=== PATIENT | female | born 1995 | race Caucasian/White ===

== ENCOUNTER 2023-08-10 14:13 | Outpatient (CLI) | payer BC, SELFPAY ==
--- NOTE | 2023-08-12 14:40 | WPDHOLTEREM ---
Holter/Event Monitor Holter/Event Monitor Date of procedure: 08/10/23 Holter/Event Procedure: 24 Hr Holter Monitor Indications: Palpitations Conclusion: 1. 24 hour holter monitor on 08/10/23. 2. Underlying rhythm is sinus rhythm. HR range 61-143 bpm; average HR 93 bpm. HR at 143 bpm was at 13:38. 3. There is 1 premature supraventricular complex. No supraventricular tachycardia. 4. No premature ventricular complexes. No ventricular tachycardia. 5. No sinoatrial or atrioventricular blocks. No significant pauses greater than 2 seconds. 6. Patient reports symptoms of fluttering which demonstrate sinus rhythm, HR range 92-117 bpm.
== END 2023-08-10 14:14 | disposition home or self-care (01) ==
PROVIDERS: PCP Advanced Practice Midwife; Visit Provider Advanced Practice Midwife
DX: R00.2 Palpitations (principal)
CPT/HCPCS: 93225; 93226

== ENCOUNTER 2023-11-06 10:50 | Outpatient (CLI) | payer BC, SELFPAY ==
[2023-11-06 11:16] VITALS: BP 100/65; PULSE 85
[2023-11-06 11:20] LABS: Basophils Absolute Auto 0.1 K/mm3 (0.0-0.1); Basophils Percent Auto 0.7 % (0.2-1.2); Eosinophils Absolute Auto 0.1 K/mm3 (0-0.3); Eosinophils Percent Auto 0.6 % (0-4.4); Hematocrit 40.8 % (37.0-47.0); Hemoglobin 13.3 g/dL (12.0-15.0); Immature Granulocyte Percent A 1.1 % (0-0.5); Lymphocytes Percent Auto 16.8 % (18.3-44.2); Mean Corpuscular HGB Conc 32.6 g/dl (32-36); Mean Corpuscular Hemoglobin 29.4 pg (26-34); Mean Corpuscular Volume 90.1 fl (80-100); Mean Platelet Volume 10.3 fl (7.4-10.4); Monocytes Absolute Auto 0.5 K/mm3 (0.1-0.6); Monocytes Percent Auto 5.4 % (2.6-8.5); Neutrophils Absolute Auto 6.8 K/mm3 (1.3-6.7); Neutrophils Percent Auto 75.4 % (45.5-73.1); Platelet Count Result 163 k/mm3 (150-375); Red Blood Count 4.53 M/mm3 (4.2-5.4); Red Cell Distribution Width 13.5 % (11.5-14.5); White Blood Count 8.9 K/mm3 (4.5-10.0)
[2023-11-06 11:20] LABS: Appearance Urine Clear (Clear); Bilirubin Urine Negative (Negative); Blood Urine Negative (Negative); Color Urine Yellow (Yellow); Glucose Urine UA Negative (Negative); Ketones Urine Negative (Negative); Leukocyte Esterase Ur Negative LEU/UL (NEGATIVE); Nitrate Urine Negative (Negative); Protein Urine Negative (Negative); Specific Grav Ur 1.004 (1.001-1.035); Urobilinogen Urine 0.2 mg/dL (<2.0); pH Urine 7.5 (5.0-9.0)
[2023-11-06 11:25] LABS: Creatinine Urine 19.7 mg/dL; Total Protein Urine Random 14 mg/dL; Ur Ttl Prot Creatinine Ratio 0.71 mg/mg (0-0.20)
[2023-11-06 11:28] LABS: Add Urine Microscopic? NO
[2023-11-06 11:29] LABS: Alanine Aminotransferase 23 U/L (6-35); Albumin Level 3.5 g/dL (3.5-5.1); Alkaline Phosphatase 103 U/L (38-126); Anion Gap 5 mmol/L (8-16); Aspartate Amino Transferase 24 U/L (14-36); Bilirubin,Total 0.6 mg/dL (0.2-1.3); Blood Urea Nitrogen 3 mg/dL (7-17); Carbon Dioxide 24 mmol/L (22-30); Chloride 107 mmol/L (98-107); Estimated Glomerular Filt Rate > 60; Glucose 79 mg/dL (65-110); Potassium 3.5 mmol/L (3.4-5.0); Sodium 136 mmol/L (137-145); Uric Acid 3.1 mg/dL (2.5-7.5)
[2023-11-06 11:31] VITALS: BP 108/63; PULSE 67
[2023-11-06 11:46] VITALS: BP 102/61; PULSE 85
--- NOTE | 2023-11-06 11:57 | PC.NURSE ---
1150--Reported labs and BP's to . DC orders given.
[2023-11-06 12:01] VITALS: BP 99/62; PULSE 94
[2023-11-06 12:28] VITALS: BP 100/65; PULSE 79
== END 2023-11-06 12:25 | disposition home or self-care (01) ==
LOC: ANHOBOP 10:55 → ANHLDR 11-11 06:42
PROVIDERS: PCP Advanced Practice Midwife; Visit Provider Obstetrics & Gynecology
DX: O13.9 Gestational [pregnancy-induced] hypertension without significant proteinuria, unspecified trimester (principal); Z3A.00 Weeks of gestation of pregnancy not specified
CPT/HCPCS: 36415; 59025; 80053; 81003; 82570; 84156; 84550; 85025; 87086; 87088; 99199

== ENCOUNTER 2023-12-01 05:58 | Inpatient (IN) | payer BC, SELFPAY ==
[2023-12-01] VITALS (24 sets, daily range): BP systolic 106–138; BP diastolic 61–101; PULSE 65–146; RESP 16–20; TEMP 36.1–37.1; O2SAT 98–100; BMI 29.2
--- OUTSIDE RECORDS SUMMARY | 2023-12-01 06:23 | XMS_ITS | Continuity of Care Document ---
Author Name Unknown Organization [facility] Address [address] [place] [id number] Care Team Providers Care Anatomy Professor Name Role Phone Nga Rizzo Primary Care Physician ( [phone] Encounter [facility] Financial Number [id number] Date(s): 10/28/23 - 10/28/23 [facility] [address] [phone] Discharge Disposition: Home or Self Care Attending Physician: Jay Starks III, MD Allergies, Adverse Reactions, Alerts Substance Reaction Severity Status Tylenol Swelling Rash Active Benzoyl Peroxide Swelling Rash Active Medications Multivitamins 1 tablet(s), Oral, qhs, 30 tablet(s), Tablet(s), 0 Start Date: 10/21/23 Status: Ordered Slow Release Iron (as elemental iron) 45 mg oral tablet, extended release mg, tablet(s), 0 Start Date: 10/21/23 Status: Ordered Vital Signs Most recent to oldest [Reference Range]: 1 Height 167.5 cm (10/28/23 1:05 PM) Weight 78 kg (10/28/23 1:05 PM) Social History Social History Type Response Alcohol Never alcohol user Substance Abuse Never drug user Smoking Status Never smoker;Never; Tobacco Cessation Counseling Requested N/A entered on: 10/21/23 Sex Patient Care team information Care Team Personnel Name: Nga Rizzo Position: [facility] FAX ONLY - MD NOT ON STAFF Member Role: Primary Care Physician Address: Address: [address] [place] [id number] [place] Name: Jay Starks III, MD Position: Physician - Plastic Surgery Med Service: [employer] Anatomy Professor Role: Attending Physician Address: Address: [address] [place] [address] [address] [place] [address] [place]
[2023-12-01 07:10] LABS: Basophils Percent Auto 0.4 % (0.2-1.2); Eosinophils Percent Auto 0.3 % (0-4.4); Hematocrit 40.7 % (37.0-47.0); Hemoglobin 13.4 g/dL (12.0-15.0); Immature Granulocyte Absolute 0.09 K/mm3 (0.00-0.031); Lymphocytes Absolute Auto 1.92 K/mm3 (0.9-3.2); Lymphocytes Percent Auto 20.6 % (18.3-44.2); Mean Corpuscular HGB Conc 32.9 g/dl (32-36); Mean Corpuscular Hemoglobin 29.6 pg (26-34); Mean Corpuscular Volume 89.8 fl (80-100); Mean Platelet Volume 11.3 fl (7.4-10.4); Monocytes Absolute Auto 0.6 K/mm3 (0.1-0.6); Neutrophils Absolute Auto 6.7 K/mm3 (1.3-6.7); Neutrophils Percent Auto 71.7 % (45.5-73.1); Platelet Count Result 162 k/mm3 (150-375); Red Blood Count 4.53 M/mm3 (4.2-5.4); Red Cell Distribution Width 13.4 % (11.5-14.5); White Blood Count 9.3 K/mm3 (4.5-10.0)
--- NOTE | 2023-12-01 07:15 | LDADM ---
This patient, Hannah Han, was admitted to Labor/Delivery/Recovery 104 on 12/01/23 at 05:58. Plans for labor, pain management and were discussed with patient. Patient/family oriented to hospital policies and general routines including ID bracelet, bed and alarms, visiting hours, pain management, procedures, bathroom and other care routines, personal items, smoking policy, room service/diet and guest tray routines, security routines, and visiting hours. Patient/Family are encouraged to report perceived risks to care and to ask questions if they do not understand what they are told or what they should do. See OBIX for further documentation.
--- NOTE | 2023-12-01 07:37 | WPDOBADMIT ---
Obstetrics - Admit Note Admission Note: record reviewed. No pertinent additions to the history and/or any subsequent changes in the physical findings that are not consistent with the expected course of the were found. Additions to the history and/or subsequent changes in the physical findings follow. Pt arrived after SROM, hx fibroids, vaginismus, SVE by RN 2 cm, anticipate vaginal delivery
[2023-12-01] MEDS: LACTATED RINGERS 1,000 ML 125 ML IV CONT (11:50)
[2023-12-01] MEDS: OXYTOCIN 30 UNITS/NS 500 ML 30 UNITS/500 ML BAG 999 UNITS IV CONT (13:50)
[2023-12-01 13:59] LABS: Rapid Plasma Reagin Non-Reactive (NonReactive)
[2023-12-01] MEDS: fentaNYL CITRATE INJ (*CRX) 100 MCG/2 ML VIAL IV PUSH (14:07)
--- NOTE | 2023-12-01 14:14 | PM.OBPRVD ---
OB - Vaginal Delivery Note Procedure Delivery date: 12/01/23 Delivery monitor: External FHT and External Uterine Route of delivery: Episiotomy description: None Laceration Description: Perineal - 2nd Degree Delivery repair: vicryl Specimen: No Quantitative Blood Loss (ml): 275 Anesthesia type: Local Disposition: Floor Complications: No immediate complications [place] Baby Date of : 12/01/23 Time of : 13:49 Weeks of gestation at delivery: 39 Infant gender: Male presentation: vertex position: Right Occiput Anterior Placenta delivery description: Spontaneous Cord Vessel Description: 3 Vessels and Delayed Cord Clamping score one minute: 8 score ten minutes: 9 Narrative: mother and baby stable
[2023-12-01] MEDS: OXYTOCIN 30 UNITS/NS 500 ML 30 UNITS/500 ML BAG 125 UNITS IV CONT (14:27)
--- NOTE | 2023-12-01 15:08 | PC.NURSE ---
[id number] Labor RN requested a consult related to finding infant poorly latched on the areola which left a purple dre. Introductions were made and LC assessed the latch. is latched to the left breast with good rocking motion and mother rates the discomfort 3 on a 0-10 paind scale. Mother denies a pinching pain, however; infant has a very strong suck. Mother's left breast has a biopsy scar going from near the areola out towards the 1 o'clock position. Mother states results were benign. demonstrated swallowing on the left breast, then detached began rooting. Nipple was slightly flattened on the underside and 's tongue was visualized having a tight lower frenulum. Encouraged understanding of the benefits of skin to skin with infant and placed upright on her chest. Reviewed positioning, supporting the breast with the sandwich hold to facilitate a deep latch, asymmetrical latch (off-center), leading with the chin with a big, open, wide, gape and body close to mother. Infant latched optimally to the left, then right breast in cross cradle position. Education given to the mother of how to visualize the suckling (with good rocking jaw motion), swallows (dropping of the lower jaw) and infant demonstrated deep lowering of the jaw on both breast. was able to maintain latch without pain other than the initial discomfort, then it subsided. Reminded mother to protect the nipple with optimal positioning, latching and good support. Patient voiced understanding to call for assistance with latching to facilitate a good deep latch. IVA RN discussed with parents a plan to check in with them tomorrow morning to assess needs.
[2023-12-01] MEDS: WITCH HAZEL 40 PADS 1 PAD TOPICAL (16:31)
[2023-12-01] MEDS: BENZOCAINE 20% AER SPR (*SP) 56 GM CAN 1 SPRAY TOPICAL (16:31)
[2023-12-01] MEDS: IBUPROFEN 600 MG TABLET PO ×2 (16:31→22:21)
--- NOTE | 2023-12-01 17:00 | OBPPTRN ---
Patient transferred to post room #280 via wheelchair. Support person present. Oriented to unit, room, information board, rooming in, admission packet and security measures. Patient verbalizes understanding.
[2023-12-01] MEDS: DOCUSATE SODIUM 100 MG CAPSULE PO (17:53)
[2023-12-02 05:18] VITALS: BP 106/65; PULSE 96; RESP 16; TEMP 36.6; O2SAT 98
[2023-12-02 05:47] LABS: Hematocrit 35.6 % (37.0-47.0); Hemoglobin 11.8 g/dL (12.0-15.0)
[2023-12-02] MEDS: DOCUSATE SODIUM 100 MG CAPSULE PO ×2 (07:01→20:20)
[2023-12-02] MEDS: IBUPROFEN 600 MG TABLET PO ×2 (07:01→13:14)
[2023-12-02] MEDS: MULTIVIT/MIN/PREN/FOL AC/IRON TABLET 1 TAB PO (07:01)
[2023-12-02 07:35] VITALS: BP 104/57; PULSE 93; RESP 16; TEMP 36.6; O2SAT 98
--- NOTE | 2023-12-02 08:22 | PM.OBPNVD ---
OB - PN: Subj Subjective Date/time seen: 12/02/23 08:22 Patient comments: no complaints, pain well controlled, incisional pain, tolerating diet and flatus present OB - PN: Obj Data Labs 12/02/23 05:34 Labs: Laboratory Results - last 24 hr 12/01/23 12/02/23 07:04 05:34 Hgb 11.8 L Hct 35.6 L RPR Non-reactive Antibody Screen Negative OB - PN A/P Plan day: 1 Plan: routine care Comments: No problems, routine care Time Spent With Patient Time: Total time spent is greater than 50% in coordination of care (as documented) at patient's floor/unit and/or counseling patient: Exam Const: General: comfortable, no acute distress and alert Resp: Effort & Inspection: normal respiratory effort Auscultation: no crackles, no rales and no rhonchi Cardio: Rate: regular rate Heart sounds: no click, no murmurs and no rubs GI: Inspection: non-distended GI Palp: No Tenderness to palpation present (GI) Auscultation: normal bowel sounds Other: Incision - CDI Extrem: General: normal to inspection, no pedal edema and no calf tenderness
--- NOTE | 2023-12-02 09:31 | PC.NURSE ---
[id number] Purposefully rounded to assess needs and mother is S2S with her after for 13 min. Mother verbalizes she is able to independently latch with appropriate positioning and alignment. She denies any nipple discomfort and is responsively . Infant is currently meeting outcomes for weight, output, jaundice, blood sugar and feeding frequencies of 8-12 times in 24 hours. Mother is encouraged to call for assistance if her doesn?t latch, difficulty waking , pain with latching, questions or concerns. Mother voiced understanding of information shared along with the feeding sheet, mom/baby guide for an additional resource with LC RN's name written on the communication board as well.
[2023-12-02 21:25] VITALS: BP 119/75; PULSE 83; RESP 16; TEMP 36.9; O2SAT 100
[2023-12-03] MEDS: IBUPROFEN 600 MG TABLET PO ×3 (00:30→14:52)
[2023-12-03 07:55] VITALS: BP 107/70; PULSE 63; RESP 18; TEMP 36.7; O2SAT 100
--- NOTE | 2023-12-03 08:06 | PM.OBPNVD ---
OB - PN: Subj Subjective Date/time seen: 12/03/23 08:06 Interval history: pp day 2 doing well d/c home OB - PN: Obj Data Labs 12/02/23 05:34 OB - PN A/P Plan day: 2 Plan: routine care and discharge home Time Spent With Patient Time: Total time spent is greater than 50% in coordination of care (as documented) at patient's floor/unit and/or counseling patient: Review of Systems Review of Systems: All systems reviewed & are unremarkable except as noted in HPI and below Exam Const: General: cooperative, healthy appearing and comfortable Resp: Effort & Inspection: normal respiratory effort Back/Spine/Pelvis: Back: no CVA tenderness Skin: General skin exam: normal color Neuro: General: patient oriented x3 Extrem: Right lower extremity: normal to inspection Left lower extremity: normal to inspection Psych: Appearance: grossly normal
--- NOTE | 2023-12-03 08:08 | PM.OBDSVD ---
DS: Admitting Diagnosis Discharge Date 12/03/23 Admitting Diagnosis SROM, labor DS: Discharge Diagnosis Discharge Diagnosis (1) Vaginal discharge: Code(s): N89.8 - Other specified noninflammatory disorders of vagina Status: Acute OB - DS: Summary OB Procedures : None OB Procedures Intrapartum: Spontaneous Vag Delivery OB Procedures: : None Peripartum Data Laceration Description: Perineal - 2nd Degree Episiotomy description: None Time Spent with Patient Time attestation: Total time spent providing and/or coordinating discharge services: Discharge Plan Discharge Attending physician on discharge: Quan Hernandez Discharging Clinician: Jasmine To Patient Disposition: Home, Self-Care Activity: pelvic rest Diet: regular Patient Instructions: Antibiotic Form Stand Alone Forms: General Discharge Information Follow-up/Referrals: Jasmine To CNM [Primary Care Provider] - 4 Weeks Discharge Medications: New ibuprofen 600 mg Tablet 600 mg PO Q6H PRN (Reason: Cramping) Qty: 30 0RF Continued Slow Fe 142 mg (45 mg iron) Tablet Extended Release 142 mg PO DAILY PNV [id number] fumarate-FA [] 28 mg iron- 800 mcg Tablet 1 tablet PO DAILY Date of admission: 12/01/23 05:58 Primary Care Provider: Jasmine To Admitting Provider: Quan Hernandez Attending physician on admission: Quan Hernandez Condition: Stable
[2023-12-03] MEDS: MULTIVIT/MIN/PREN/FOL AC/IRON TABLET 1 TAB PO (08:42)
[2023-12-03] MEDS: DOCUSATE SODIUM 100 MG CAPSULE PO ×2 (08:42→16:50)
--- NOTE | 2023-12-03 16:35 | PC.NURSE ---
[id number] Purposefully rounded to assess for needs and to check in to see how the night went. Parents shared there was a not so good feeding last night. Encouraged [id number] and stimulating for and to call if she has difficulty waking infant or when feeding cues are visualized. [id number] Mother requested a consult. Reviewed positioning and ear, shoulder, hip alignment, supporting the breast to facilitate a deep latch, asymmetrical latch (off-center), leading with the chin with a big, open, wide gape and body close to mother. Infant latched optimally to the left, then right breast in football, then cross cradle position. Education given to the mother of how to visualize the suckling (with good rocking jaw motion), swallows (dropping of the lower jaw) and how to listen for drinking at the breast (the ka sound) infant demonstrated more effective swallowing on the right breast. There is a scar on the left breast from a biopsy during . was able to maintain latch without pain to mother other than the initial latching. Encouraged mother to protect the nipple with optimal positioning, latching, and detaching. Mother voiced understanding of skin to skin, stimulating with massage touch, responsive feedings, to encourage if it has been 2 -2.5 hours since the start of the last , to call if infant does not latch, difficulty waking to breastfeed or if there is discomfort with . Resources used for education were facilitated with the visual educational handouts, tool, mom and baby guide. Inpatient/outpatient resources provided with feeding sheet, name written on the communication board, and the mom/baby guide. Parents voiced understanding of information, demonstrated learning and will call if there is a request for assistance. Reported to the Primary RN.
[2023-12-04 11:32] VITALS: BP 137/87; PULSE 98; RESP 18; TEMP 37.2; O2SAT 100
== END 2023-12-03 18:55 | disposition home or self-care (01) | DRG 807 ==
LOC: ANHLDR 06:22 → ANHOB2 17:12
PROVIDERS: Admitting Provider Obstetrics & Gynecology; PCP Advanced Practice Midwife; Visit Provider Obstetrics & Gynecology
DX: O70.1 Second degree perineal laceration during delivery (principal); Z37.0 Single live birth; Z3A.39 39 weeks gestation of pregnancy
CPT/HCPCS: 36415; 84112; 85014; 85018; 85025; 86592; 86850; 86900; 86901; A9270; J2590; J3010; J7120

== ENCOUNTER 2023-12-05 23:20 | Observation (INO) | payer BC, SELFPAY ==
--- NOTE | 2023-12-05 23:19 | PC.NURSE ---
Pt presents to unit with report of swelling feet and an increase in heart rate.
[2023-12-06 00:11] VITALS: PULSE 76; O2SAT 100
[2023-12-06 00:15] VITALS: BP 127/84; PULSE 63; PULSE 83; O2SAT 100
[2023-12-06 00:16] VITALS: BP 127/84; PULSE 63; PULSE 71; RESP 16; O2SAT 100
[2023-12-06 00:20] VITALS: PULSE 65; TEMP 37.1; O2SAT 99
--- NOTE | 2023-12-06 00:22 | PC.NURSE ---
Called Kenneth To CNM to update on pt, swelling, heart rate, vitals, and vaginal bleeding. Kenneth To asked to assess vaginal tear and call back with report on tear.
[2023-12-06 00:25] VITALS: PULSE 64; O2SAT 100
--- NOTE | 2023-12-06 00:30 | PC.NURSE ---
Updated Kenneth To CNM on vaginal tear odor and white appearance, asked to come look at tear. Orders received to administer Flagyl PO 500 mg, Silvadene to incision, and discharge pt with instructions to make an appointment in the office on Wednesday.
--- NOTE | 2023-12-06 00:39 | PC.NURSE ---
Orders received to send a prescription Flagyl PO 500 mg for seven days.
[2023-12-06] MEDS: metroNIDAZOLE 250 MG TABLET 500 MG PO (01:34)
[2023-12-06] MEDS: SILVER SULFADIAZINE 1% CR 50 GM JAR (*BKC) 1 APPLIC TOPICAL (01:38)
--- NOTE | 2023-12-07 10:30 | PM.OBTRLD ---
OB - Triage/Final Diagnosis Visit Information Date of evaluation: 12/05/23 Reason for evaluation: other (swelling) Comments/Additional reasons for admission: I have assessed the risk for this patient, Hannah Han, and determined that she would benefit from observation care.
== END 2023-12-06 01:47 | disposition home or self-care (01) ==
LOC: ANHOBOP 23:29 → ANHOBPP 23:34 → ANHOBOP 12-06 00:49 → ANHOBPP 12-06 00:49
PROVIDERS: Admitting Provider Obstetrics & Gynecology; PCP Obstetrics & Gynecology; Visit Provider Obstetrics & Gynecology
DX: O90.89 Other complications of the puerperium, not elsewhere classified (principal); R06.9 Unspecified abnormalities of breathing
CPT/HCPCS: A9270; G0378; G0379

== ENCOUNTER 2023-12-17 11:34 | Outpatient (CLI) | payer BC, SELFPAY | END 2023-12-17 11:35 | disposition home or self-care (01) | LOC: ANHOBOP 11:36 | PROVIDERS: PCP Obstetrics & Gynecology; Visit Provider Obstetrics & Gynecology | DX: Z39.1 Encounter for care and examination of lactating mother (principal) | CPT/HCPCS: 99213; G0463 ==